=== PATIENT | female | born 1940 | race Caucasian/White ===

== ENCOUNTER 2024-03-24 22:01 | Observation (INO) | payer OTHER, SELFPAY ==
[2024-03-24 13:36] VITALS: BP 151/108
[2024-03-24 13:58] LABS: % Basophils 0.4 % (0-2); % Eosinophils 1.1 % (0-6); % Immature Granulocytes 0.2 % (0-0.5); % Lymphocytes 27.2 % (20.5-51.1); % Monocytes 8.5 % (1.7-9.3); % Neutrophils 62.6 % (42.2-75.2); Absolute Eosinophils 0.1 10^3/uL (0-0.7); Absolute Lymphocytes 1.5 10^3/uL (1.2-3.4); Absolute Monocytes 0.5 10^3/uL (0.1-0.6); Absolute Neutrophils 3.5 10^3/uL (1.4-6.5); Hematocrit 38.6 % (37.0-47.0); Hemoglobin 12.9 g/dL (12.0-16.0); Mean Corp Hgb Conc. 33.4 g/dL (33.0-37.0); Mean Corpuscular Hgb 29.3 pg (27.0-31.0); Mean Corpuscular Volume 87.7 fL (81.0-99.0); Mean Platelet Volume 11.2 fL (7.4-10.4); Nucleated Red Blood Cells % 0 %; Platelet Count 159 10^3/uL (130-400); Red Cell Dist. Width 13.4 % (11.5-14.5); White Blood Cell Count 5.6 10^3/uL (4.8-10.8)
[2024-03-24 14:11] LABS: ALT (SGPT) 13 U/L (0-35); AST (SGOT) 28 U/L (14-36); Albumin 4.5 g/dl (3.5-5.0); Alkaline Phosphatase 77 U/L (38-126); Blood Urea Nitrogen 18 mg/dl (7-17); Calcium 9.5 mg/dl (8.4-10.2); Carbon Dioxide 28 mmol/L (22-30); Chloride 104 mmol/L (98-107); Glucose 108 mg/dl (70-99); Potassium 4.2 mmol/L (3.5-5.1); Sodium 142 mmol/L (135-145); Total Bilirubin 0.9 mg/dl (0.2-1.3); eGFR > 60.00
[2024-03-24 14:18] LABS: Troponin I < 0.012 ng/ml
--- NOTE | 2024-03-24 16:24 | ED.GENMED ---
History of Present Illness
General
Chief Complaint: Dizziness
Source: patient
Exam Limitations: none
Time Seen by Provider: 03/24/24 15:06
Nursing documentation reviewed up to this point in time: agreed with
History of Present Illness
History of Present Illness:
84-year-old female past medical history of hypertension, anemia, GERD presenting to the emergency department today with concerns of room spinning dizziness that started 2 days ago has some ongoing symptoms throughout the day some mild symptoms
yesterday and today had an episode over the room spinning had difficulty ambulating from her come to the ER. She also had some vomiting yesterday. Denies any history of vertigo denies headache numbness weakness otherwise. Also has had some
pressure to the back of her head.
Past History
Past History
ED Past Medical History: GERD and Other (overactive bladder, anemia)
ED Past Surgical History: Other
Social History
Tobacco: Non-smoker
Drug: None
Personal:
Living: with family
Employment: Retired
Family History
Family History: Other
Review of Systems
Review of Systems
Allergies reviewed?: Yes
All Other Systems: ROS reviewed and negative except as documented in HPI and ROS
Phy Exam
Physical Exam
Physical Exam:
GENERAL: Alert , in no apparent distress
EYE: pupils equal and reactive
NECK: Supple, no significant adenopathy.
ENT: o/p clr, mmm.
CARDIAC: Regular rate and rhythm .
LUNGS: Clear breath sounds bilaterally, no acute respiratory distress, no wheezes/rales/rhonchi
ABDOMEN: Soft, without focal tenderness, no r/g, no cvat
NEUROLOGICAL: Alert and oriented, no focal neuro deficits 5-5 upper and lower extremity strength normal sensation with palpating bilaterally normal finger-nose and heel calvillo no pronator drift
SKIN: Warm and dry, skin intact.
MUSCULOSKELETAL: No edema, well perfused.
PSYCH: Normal and appropriate interaction.
Course
Orders/Labs/Results
Orders:
Orders
03/24/24 13:36
Electrocardiogram (*1) Urgent
Reason for Study: Vertigo / Dizzy
EKG- Treatment ONCE
03/24/24 13:41
Complete Blood Count/With Diff Urgent
Comprehensive Metabolic Panel Urgent
Troponin I Urgent
03/24/24 15:55
CT Head W/o Iv Contrast Urgent
Comment:
Reason For Exam: dizziness
03/24/24 16:20
Meclizine [Antivert] 25 mg PO NOW STA
Pt Eval And Treat Urgent
Treatment: vestibular
Activity Level: Ambulate
03/24/24 16:26
0.9% Sodium Chloride 500 ml [Nss] 500 ml IV BOLUS
03/24/24 19:58
Acetaminophen [Tylenol] 1,000 mg PO NOW STA
Abnormal Lab Results
03/24/24
13:41
MPV 11.2 H fL
(7.4-10.4)
BUN 18 H mg/dl
(7-17)
Glucose 108 H mg/dl
(70-99)
03/24/24 13:41
03/24/24 13:41
Vital Signs
Initial and Last Documented VS:
Initial Vital Signs
Temp Pulse Resp Pulse Ox
97.8 F 72 18 98
03/24/24 13:35 03/24/24 13:35 03/24/24 13:35 03/24/24 13:35
Last Documented Vital Signs
Temp Pulse Resp BP Pulse Ox
97.8 F 79 19 185/116 93
03/24/24 13:35 03/24/24 19:00 03/24/24 19:00 03/24/24 17:11 03/24/24 19:00
MDM/Problems Addressed
MDM/Problems Addressed:
84-year-old female presenting to the emergency department today with concerns of room spinning dizziness starting while laying in bed 2 days ago intermittently ongoing over the past few days episode today some vomiting yesterday on arrival blood
pressure mildly elevated otherwise vital signs are normal. Here normal neurologic evaluation but had some staggering gait but is not typical for her. She normally walks without assistance. Labs without acute abnormalities of the slightly elevated
BUN to creatinine ratio. She was given some meclizine and fluids. Patient reassessed without significant improvement of symptoms. CT scan performed here without acute findings. Patient was ambulated here still staggering gait almost fell over
during exam typically walks on her own plan to admit for further assessment
*Critical Care Note
Total Time (30-74mins, 75-104mins- exclusive of procedures): Not Applicable
ED Attending Note
-
Portions of this chart may have been created with voice recognition software.� Occasional wrong word or��sound alike� substitutions may have occurred due to the inherent limitations of voice recognition software.
Discharge Plan
Departure
Patient Disposition: Admit
Date of Disposition: 03/24/24
Time of Disposition: 20:03
Admit to: Telemetry
Admit to doctor: Jerel
Presentation/result/management discussed w/ accepting MD/DO: Hospitalist
Patient with high blood pressure during this ER visit?: Yes
Condition: Good
Covid-19: Not Applicable
Discharge Problem:
Balance disorder, Dizziness
Prescriptions:
No Action
hydrocodone-acetaminophen 1 TABLET tablet
1 tab PO Q4HPRN PRN (Reason: pain) Qty: 15 0RF
diazepam 2 MG tablet
2 mg PO TIDPRN PRN (Reason: severe back pain) Qty: 15 0RF
Referrals:
Adam Chatman MD [Family Provider] -
Interventions
Interventions:
*Risk Screen - Suicide Last Done: 03/24/24 16:33
*General Assessment Last Done: 03/24/24 17:14
*Neglect/Abuse Screening Last Done: 03/24/24 16:33
*ED COVID-19 Vaccine History Last Done: 03/24/24 17:14
ED- Neurological Assessment Last Done: 03/24/24 17:00
ED Swallowing Screen Last Done: 03/24/24 17:00
Discharge Date and Time
Print Language: JAPANESE
[2024-03-24] MEDS: ANTIVERT PO (16:31)
[2024-03-24] MEDS: ANTIVERT 25 MG PO (17:02)
[2024-03-24 17:04] VITALS: BP 186/89
[2024-03-24 17:11] VITALS: BP 185/116
[2024-03-24] MEDS: NSS 500 IV (17:13)
[2024-03-24] MEDS: TYLENOL 1000 MG PO (20:16)
--- NOTE | 2024-03-24 21:15 | HPS.HSE ---
Addendum entered and electronically signed by Jm Tirado MD 03/24/24 22:27:
Attending addendum.
patient was interviewed and examined independently.
84 woman with vertigo, not improved by head maneuvers. symptoms started at rest.
Exam: PERRLA
Face symmetric
Neuro symmetric
Lungs clear
Abd soft
4/[address]:
No acute intracranial abnormality noted.
Moderate chronic microvascular white matter ischemic disease. Small focal chronic periventricular white matter lacunar infarct. Atrophy. No hydrocephalus.
A/P
84 woman with vertigo.
1. Vertigo, possible BPPV vs Acute/Subacute Stroke
Consult Neurology
Brain MRI
aspirin
meclizine prn
PT/OT
Please see PA note for full details on:
Hypertension,
Cardiac Murmur
Overactive Bladder
Original Note:
Family Physician
-
Family Physician: Adam Chatman
Chief Complaint
-
Vertigo
History of Present Illness
Patient is an 84-year-old female past medical history of hypertension who presents with vertigo. Patient reports with concerns of room spinning, dizziness, starting while laying in bed 2 days ago. She reports two episode of spinning sensation that
last a few minutes each. She reports one episode of vomiting due to the severity of the symptoms. She continues to reports difficulty with ambulation due to feeling off balance. She denies any prior history of TIA/CVA or prior similar symptoms.
Medical History
Past Medical History
Past Medical History: Reports Other
Additional Past Medical History:
Essential Hypertension
Overactive Bladder
Past Surgical History: Reports Other
Additional Past Surgical History:
Partial Thyroidectomy
Appendectomy
Cholecystectomy
Hysterectomy
Bladder Lift
Left Rotator Cuff
Social History
Tobacco: Non-smoker
Alcohol: Occasional
Family History
Family History: Not pertinent
Allergies / Home Medications
Allergies reflects when Allergies were last updated in [employer].
Home Medications with original date entered in [employer]
Allergy/Medication List:
Allergies
Allergy/AdvReac Type Severity Reaction Status Date / Time
aspirin Allergy Nausea / Verified 03/24/24 21:10
[From Empirin W/Codeine] Vomiting
codeine phosphate Allergy Nausea / Verified 03/24/24 21:10
[From Empirin W/Codeine] Vomiting
Home Medications
aspirin 81 mg tablet,delayed release 81 mg PO DAILY 03/24/24
lisinopril 5 mg tablet 5 mg PO DAILY 03/24/24
tolterodine 4 mg capsule,extended release 24 hr 4 mg PO DAILYPRN PRN overactive bladder 03/24/24
Review of Systems
-
A 12 point ROS was completed and negative except as noted: Yes
Constitutional: Denies Fever or Chills
Respiratory: Denies Cough or Trouble Breathing
Cardiac: Denies Chest Pain or Palpitations
Abdomen/GI: Denies Abdominal Pain
Physical Exam
Vital Signs
Vital Signs
Temp Pulse Resp BP Pulse Ox
97.8 F 78 19 185/116 93
03/24/24 13:35 03/24/24 20:19 03/24/24 19:00 03/24/24 17:11 03/24/24 19:00
Physical Exam
General: Comfortable and Conversant
HEENT: Anicteric, Moist mucous membranes, PERRLA and Other (Nystagmus with lateral gaze to the left)
Respiratory: Clear and Non Labored Respirations
Cardiac: S1/S2, Regular Rhythm and Murmur
GI: Soft and Non Tender
Rectal: Deferred by Provider
Musculoskeletal: No Clubbing, No Cyanosis and No Edema
Skin: Warm and Dry
Neuro: Awake, Alert, Oriented, No Motor Deficits and Other (Ataxia noted when ambulating with ED staff)
Psych: Calm
Laboratory Results
-
03/24/24 13:41
03/24/24 13:41
Laboratory Results
Total Bilirubin 0.9 mg/dl (0.2-1.3) 03/24/24 13:41
AST 28 U/L (14-36) 03/24/24 13:41
ALT 13 U/L (0-35) 03/24/24 13:41
Alkaline Phosphatase 77 U/L (38-126) 03/24/24 13:41
Troponin I < 0.012 ng/ml 03/24/24 13:[address]:
No acute intracranial abnormality noted.
Moderate chronic microvascular white matter ischemic disease. Small focal chronic periventricular white matter lacunar infarct. Atrophy. No hydrocephalus.
Data Reviewed
-
CT Scan: Report Reviewed by me
Lab Data: Labs Reviewed by me
Impression/Plan
-
Vertigo, possible BPPV vs Acute/Subacute Stroke
-Consult Neurology
-Check Brain MRI
-Continue aspirin
-Continue meclizine prn
-Consult PT/OT
Hypertension, BP uncontrolled at present time due to missed meds
-Continue lisinopril with first dose now
Cardiac Murmur
-Check Echo
Overactive Bladder
-Continue tolterodine
DVT proph: SCDs
Code Status: Full Code
[2024-03-24] MEDS: ZESTRIL 5 MG PO (23:02)
[2024-03-24 23:04] VITALS: BP 168/81; BMI 25.8
[2024-03-25] VITALS (8 sets, daily range): BP systolic 137–170; BP diastolic 71–92; PULSE 71–76; O2SAT 97
[2024-03-25 05:53] LABS: Hematocrit 37.5 % (37.0-47.0); Hemoglobin 12.6 g/dL (12.0-16.0); Mean Corp Hgb Conc. 33.6 g/dL (33.0-37.0); Mean Corpuscular Hgb 29.4 pg (27.0-31.0); Mean Corpuscular Volume 87.6 fL (81.0-99.0); Mean Platelet Volume 11.1 fL (7.4-10.4); Platelet Count 146 10^3/uL (130-400); Red Blood Cell Count 4.28 10^6/uL (4.20-5.40); Red Cell Dist. Width 13.4 % (11.5-14.5); White Blood Cell Count 4.2 10^3/uL (4.8-10.8)
[2024-03-25 06:17] LABS: Blood Urea Nitrogen 21 mg/dl (7-17); Calcium 8.9 mg/dl (8.4-10.2); Carbon Dioxide 29 mmol/L (22-30); Chloride 106 mmol/L (98-107); Estimated Creatinine Clearance 50 ml/min; Glucose 92 mg/dl (70-99); HDL Cholesterol 54 mg/dl; LDL Cholesterol, Calculated 141 mg/dl; Magnesium 1.9 mg/dl (1.6-2.3); Potassium 3.9 mmol/L (3.5-5.1); Sodium 143 mmol/L (135-145); Total Cholesterol 217 mg/dl (50-199); Triglyceride 113 mg/dl (10-149); Very Low Density Lipoprotein 22 mg/dl (0-30); eGFR > 60.00
[2024-03-25] MEDS: ANTIVERT 12.5 MG PO ×2 (08:35→20:11)
[2024-03-25] MEDS: ZESTRIL 5 MG PO (08:37)
[2024-03-25] MEDS: ASPIR LOW (ENTERIC COATED) 81 MG PO (08:37)
[2024-03-25] MEDS: HEPARIN 5000 UNITS SC ×2 (08:40→20:14)
--- NOTE | 2024-03-25 08:40 | PTOTSP ---
Speech Language Pathology
Pt seen for cognitive-linguistic evaluation via the [employer] Cognitive Assessment (MOCA), version 8.3. No dysarthria noted. Pt with a score of 25/30 where normal range is 26-30. Pt stated this is baseline.
Pt also seen for clinical bedside swallow evaluation. She reported that she has to take small bites or solids will 'go down the wrong pipe.' P.O. trials of regular solids and thin liquids provided. Also seen with med pass with meds whole with
liquids. Adequate mastication, bolus formation, and A-P transit noted with no oral residue. No overt signs of aspiration. Pt reported globus sensation in chest x1. If dysphagia present, suspect esophageal in nature, and it appears pt manages
this well.
Recommend:
(1) Continue regular solids/thin liquids
(2) General aspiration precautions
(3) Meds as tolerated
(4) DIRECTOR DATA ARCHITECTURE to sign off as pt is at baseline. Please reconsult as indicated
--- NOTE | 2024-03-25 09:40 | W.PN.HOSP.TC ---
Today's Communication/Plan
-
Neurology evaluation
MRI
Meclizine
Assessment / Plan
Assessment / Plan
Physical Exam
General: Comfortable and Conversant
HEENT: Anicteric, Moist mucous membranes, PERRLA and Other (Nystagmus with lateral gaze to the left)
Respiratory: Clear and Non Labored Respirations
Cardiac: S1/S2, Regular Rhythm and Murmur
GI: Soft and Non Tender
Rectal: Deferred by Provider
Musculoskeletal: No Clubbing, No Cyanosis and No Edema
Skin: Warm and Dry
Neuro: Awake, Alert, Oriented, No Motor Deficits and Other (Ataxia noted when ambulating with ED staff)
Psych: Calm, not anxious
# Vertigo, possible BPPV vs Acute/Subacute Stroke
She feels better this morning, not dizzy but has similar episode in past
CT head showed no acute intracranial abnormality noted. Moderate chronic microvascular white matter ischemic disease. Small focal chronic periventricular white matter lacunar infarct. Atrophy. No hydrocephalus.
For Brain MRI, wants Ativan before it
aspirin orally
No fever or leukocytosis
No earache , wears haring aids.
Oral meclizine, change to BID and PRN
PT/OT/
ok for diet
Appreciate neurology input
Please see PA note for full details on:
# Primary Hypertension,
No hypotension
SBP 150-140
c/w Lisinopril
Add lisinopril
# HLD,
# Valvular heart disease
Echo in 2019 showed Mild to moderate MR. Mild to moderate aortic regurgitation.
#Overactive Bladder.
Total time spent to see the patient, examine the patient on the floor, review data and lab results, discuss the treatment plan with the patient, nursing staff around 55 minutes
Anticipated Discharge: Within 24 hours
Subjective/Interval History
-
Date of Service: March 25, 2024
She has vertigo, dizzy mostly to right side
No chest pain
No sob
Objective Data
-
Labs:
Laboratory Results
03/25/24
05:33
WBC 4.2 L
Hgb 12.6
Hct 37.5
Plt Count 146
Sodium 143
Potassium 3.9
Chloride 106
Carbon Dioxide 29
BUN 21 H
Creatinine 0.7
Glucose 92
Calcium 8.9
Vital Signs:
Vital Signs
Temp Pulse Resp BP Pulse Ox
98.0 F 78 18 143/72 99
03/25/24 07:25 03/25/24 07:25 03/25/24 07:25 03/25/24 07:25 03/25/24 07:25
[2024-03-25 11:32] LABS: Glycohemoglobin (HgbA1c) 5.5 % (4.0-5.6)
--- NOTE | 2024-03-25 12:15 | CM ---
CM met with pt and dtr/Margaret bedside
Pt resides with her spouse with dementia in an inlaw suite attached to son's Jon's home
Suite is 1 story with 2 PIL[address]
Pt is independent with her ADLs, no DMEs, drives+
No insecurities
PCP- Adam Chatman
Rx- Mal
PT/OT evals pending
Pt is OBS- LESLIE completed
Copy provided
Of note, spouse is second marriage and not father of her children
POA is older son/ Jose R in [place]
Requested copy for chart
Margaret to remain primary contact
Discharge Disposition- home, watch for VN/DME needs
--- NOTE | 2024-03-25 13:47 | CON.NEURO4 ---
Documented by User: Madeline Fernandez NP 03/25/24 14:44
Consultation - Neurology 4
-
CONSULTING PHYSICIAN: Marcos Blanc MD
REFERRING PHYSICIAN: Hospitalists/Krysta Coe PA-C
DICTATED BY: JUAN Nicole
DATE/TIME OF REQUEST: 03/24/24
DATE/TIME OF CONSULTATION: 03/25/24
Reason for Consultation: Dizziness
History of Present Illness:
This is an 84-year-old female who has presented to the hospital on 03/24/24 with report of dizziness. Patient reports that three days ago on 03/22/24 she was laying in bed when she suddenly developed a room-spinning sensation in which the rivas were
spinning around her. The spinning sensation lasts for a few minutes before improving but has persisted intermittently for days. She reports intermittent nausea and vomited on 03/23/24. CT head was obtained on arrival in the ER and is negative for any
acute abnormalities but is suggestive of a chronic white matter lacunar infarct. Currently, she reports feeling improved, but when she ambulates she still feels 'off-balance.' Physical therapy initial evaluation revealed resting and left gaze
nystagmus suggestive of vestibular neuritis. She had Covid in November 2023 but denies any recent illnesses. She has bilateral hearing loss and tinnitus starting >10 years ago. She reports having a similar spinning episode about one year ago that was
short lasting compared to this. She also notes having intermittent light-headedness with position change after taking her tolterodine. She denies any known history of TIA or stroke in the past. She is taking aspirin 81mg daily.
Past Medical History: HTN, GERD, anemia, overactive bladder,
Surgical History: Partial thyroidectomy, appendectomy, cholecystectomy, hysterectomy, bladder life, left rotator cuff repair.
Family History: Reviewed and noncontributory.
Social History: Denies tobacco, alcohol, and illicit drug use.
Allergies: Aspirin with codeine.
Home Medications: See below.
Review of Symptoms:
Patient denies any fever, headache, chest pain, shortness of breath, GI or symptoms.
�Per the HPI.�All systems are reviewed negative except above.
Physical Exam:
The patient is afebrile, abdomen is nondistended, breathing is unlabored, skin is warm and dry, no edema.
NIH Stroke Scale:
I performed the NIH stroke scale on the patient on 03/25/24 at 1245. The patient scored 0 points on the NIH stroke scale assessment, which were assigned as follows: See below.
Neurologic Examination:
The patient is awake, alert and oriented x 3. She is able to follow commands and answer questions appropriately. There is no aphasia or dysarthria. On cranial nerve assessment, pupils are 3 mm bilateral, round and reactive to light and
accommodation. Visual kapoor are full. Extraocular movements are intact. Facial sensations are intact and bilaterally symmetrical, there is no facial asymmetry. Hearing is diminished bilaterally to normal conversation volume. Tongue palate and uvula
are midline. Sternocleidomastoid strengths are full bilaterally. Motor strengths are 5/5 bilateral upper and lower extremities on medical research [place] scale. There is no drift or involuntary movement noted. Babinski is absent bilaterally. There
was no extinction noted on double simultaneous stimulation. Coordination is intact by finger to nose bilaterally.
Lab Results: See below.
Neuro Imaging:
1. CT Head 03/24/24: No acute intracranial abnormality noted. Moderate chronic microvascular white matter ischemic disease. Small focal chronic periventricular white matter lacunar infarct. Atrophy. No hydrocephalus.
Differentials for the patient's presentation include:
1. Vertigo syndrome, likely vestibular neuritis vs BPPV.
2. Cannot entirely exclude acute small ischemic stroke contributing to symptoms.
3. CT Head suggestive of chronic white matter lacunar infarct.
Patient has the following risk factors for their symptoms: Hx vertigo, nystagmus, HTN
IV Tenecteplase/IAT candidacy: Not a candidate due to outside of time window.
Recommendations:
-Continue aspirin 81mg daily.
-MRI brain noncontrast, MRA head/neck pending.
-Goal normotension.
-Supportive care, continue meclizine if this is helpful.
-NIHSS and neurological checks per unit guidelines.
-Provide patient with a stroke education packet.
-Vitamin B12 level low in 2008, checking blood work for metabolic abnormalities.
-PT evaluations, will likely need outpatient vestibular therapy.
-DVT prophylaxis.
-Will follow pending results.
Discussed patient care with: Dr. Blanc, the patient, patient's daughter
Vital Signs and Labs
-
Vital Signs and Labs:
Vital Signs
Temp Pulse Resp BP Pulse Ox
98.4 F 88 16 155/92 96
03/25/24 11:45 03/25/24 11:45 03/25/24 11:45 03/25/24 11:45 03/25/24 11:45
Lab Results
03/25/24 05:33
03/25/24 05:33
Sodium 143 mmol/L (135-145) 03/25/24 05:33
Potassium 3.9 mmol/L (3.5-5.1) 03/25/24 05:33
BUN 21 mg/dl (7-17) H 03/25/24 05:33
Glucose 92 mg/dl (70-99) 03/25/24 05:33
Calcium 8.9 mg/dl (8.4-10.2) 03/25/24 05:33
LDL Cholesterol, Calc 141 mg/dl 03/25/24 05:33
Medications
-
Active Medications
Generic Name Dose Route Start Last Admin
Trade Name Freq PRN Reason Stop Dose Admin
Acetaminophen 650 mg 03/24/24 22:42
Acetaminophen 650 Mg Rectal Suppository RECTAL 04/21/24 22:41
Q4HPRN PRN
MEJÍA, mild pain, or temp >100.4F
Acetaminophen 650 mg 03/25/24 02:00
Acetaminophen 325 Mg Tablet PO 04/22/24 01:59
Q4HPRN PRN
MEJÍA, mild pain, or temp >100.4F
Aspirin 81 mg 03/25/24 08:00 03/25/24 08:37
Aspirin 81 Mg (Enteric Coated) Tablet PO 04/22/24 07:59 81 mg
DAILY SUPA Administration
Atorvastatin Calcium 20 mg 03/25/24 18:00
Atorvastatin (Lipitor) 20 Mg Tablet PO 04/22/24 17:59
QPM SUPA
Heparin Sodium 5,000 units 03/25/24 08:00 03/25/24 08:40
Heparin 5,000 Units/Ml 1 Ml Vial SC 04/22/24 07:59 5,000 units
Q12 SUPA Administration
Lisinopril 5 mg 03/25/24 08:00 03/25/24 08:37
Lisinopril 5 Mg Tablet PO 04/22/24 07:59 5 mg
DAILY SUPA Administration
Meclizine HCl 25 mg 03/24/24 22:42
Meclizine 25 Mg Tablet PO 04/21/24 22:41
Q8HPRN PRN
vertigo
Meclizine HCl 12.5 mg 03/25/24 08:00 03/25/24 08:35
Meclizine 12.5 Mg Tablet PO 04/22/24 07:59 12.5 mg
BID SUPA Administration
Ondansetron HCl 4 mg 03/24/24 22:42
Ondansetron 4 Mg/2 Ml Vial IV 04/21/24 22:41
Q6HPRN PRN
NAUSEA/VOMITING
Sodium Chloride 0 flush 03/24/24 22:00
Sodium Chloride 0.9% (Flush) Syringe IV 04/21/24 21:59
PER PROTOCOL SUPA
Tolterodine Tartrate 4 mg 03/24/24 22:42
Tolterodine 4 Mg Extended Release Capsule PO 04/21/24 22:41
DAILYPRN PRN
overactive bladder
Home Medications
�Medication �Instructions �Recorded
aspirin 81 mg tablet,delayed 81 mg PO DAILY Blood Clot 03/24/24
release Prevention/Tx
lisinopril 5 mg tablet 5 mg PO DAILY Blood Pressure 03/24/24
tolterodine 4 mg capsule,extended 4 mg PO DAILYPRN PRN overactive 03/24/24
release 24 hr bladder
NIH Stroke Score
Subsequent NIH Scale
Date of Subsequent NIH Scale: 03/25/24
Time of Subsequent NIH Scale: 12:45
NIH Stroke Score
Level of Consciousness: 0 - Alert
LOC Questions: 0-Answers both correctly
LOC Commands: 0-Performs both correctly
Best Horizontal Gaze: 0-Normal
Visual Kapoor: 0=Normal, no visual loss
Facial Palsy: 0=Normal, symmetrical
Motor - Right Arm: 0=No drift 10 seconds
Motor - Left Arm: 0=No drift 10 seconds
Motor - Right Le-No drift 5 seconds
Motor - Left Le-No drift 5 seconds
Limb Ataxia: 0-Absent
Sensation: 0-Normal
Best Language: 0-No aphasia
Dysarthria: 0-Normal
Extinction and Inattention: 0-No abnormality
Total Score:: 0
Modified Milton (mRS) Score
Modified Melissa Scale (mRS): Moderate disability. Requires some help, able to walk unassisted.
Score: 3

Documented by User: Marcos Blanc MD 03/29/24 20:32
Consultation - Neurology 4
-
CONSULTING PHYSICIAN: Marcos Blanc MD
REFERRING PHYSICIAN: Hospitalists/Krysta Coe PA-C
DICTATED BY: JUAN Nicole
DATE/TIME OF REQUEST: 03/24/24
DATE/TIME OF CONSULTATION: 03/25/24
Reason for Consultation: Dizziness
History of Present Illness:
This is an 84-year-old female who has presented to the hospital on 03/24/24 with report of dizziness. Patient reports that three days ago on 03/22/24 she was laying in bed when she suddenly developed a room-spinning sensation in which the rivas were
spinning around her. The spinning sensation lasts for a few minutes before improving but has persisted intermittently for days. She reports intermittent nausea and vomited on 03/23/24. CT head was obtained on arrival in the ER and is negative for any
acute abnormalities but is suggestive of a chronic white matter lacunar infarct. Currently, she reports feeling improved, but when she ambulates she still feels 'off-balance.' Physical therapy initial evaluation revealed resting and left gaze
nystagmus suggestive of vestibular neuritis. She had Covid in November 2023 but denies any recent illnesses. She has bilateral hearing loss and tinnitus starting >10 years ago. She reports having a similar spinning episode about one year ago that was
short lasting compared to this. She also notes having intermittent light-headedness with position change after taking her tolterodine. She denies any known history of TIA or stroke in the past. She is taking aspirin 81mg daily.
Past Medical History: HTN, GERD, anemia, overactive bladder,
Surgical History: Partial thyroidectomy, appendectomy, cholecystectomy, hysterectomy, bladder life, left rotator cuff repair.
Family History: Reviewed and noncontributory.
Social History: Denies tobacco, alcohol, and illicit drug use.
Allergies: Aspirin with codeine.
Home Medications: See below.
Review of Symptoms:
Patient denies any fever, headache, chest pain, shortness of breath, GI or symptoms.
�Per the HPI.�All systems are reviewed negative except above.
Physical Exam:
The patient is afebrile, abdomen is nondistended, breathing is unlabored, skin is warm and dry, no edema.
NIH Stroke Scale:
I performed the NIH stroke scale on the patient on 03/25/24 at 1245. The patient scored 0 points on the NIH stroke scale assessment, which were assigned as follows: See below.
Neurologic Examination:
The patient is awake, alert and oriented x 3. She is able to follow commands and answer questions appropriately. There is no aphasia or dysarthria. On cranial nerve assessment, pupils are 3 mm bilateral, round and reactive to light and
accommodation. Visual kapoor are full. Extraocular movements are intact. Facial sensations are intact and bilaterally symmetrical, there is no facial asymmetry. Hearing is diminished bilaterally to normal conversation volume. Tongue palate and uvula
are midline. Sternocleidomastoid strengths are full bilaterally. Motor strengths are 5/5 bilateral upper and lower extremities on medical research [place] scale. There is no drift or involuntary movement noted. Babinski is absent bilaterally. There
was no extinction noted on double simultaneous stimulation. Coordination is intact by finger to nose bilaterally.
Lab Results: See below.
Neuro Imaging:
1. CT Head 03/24/24: No acute intracranial abnormality noted. Moderate chronic microvascular white matter ischemic disease. Small focal chronic periventricular white matter lacunar infarct. Atrophy. No hydrocephalus.
Differentials for the patient's presentation include:
1. Vertigo syndrome, likely vestibular neuritis vs BPPV.
2. Cannot entirely exclude acute small ischemic stroke contributing to symptoms.
3. CT Head suggestive of chronic white matter lacunar infarct.
Patient has the following risk factors for their symptoms: Hx vertigo, nystagmus, HTN
IV Tenecteplase/IAT candidacy: Not a candidate due to outside of time window.
Recommendations:
-Continue aspirin 81mg daily.
-MRI brain noncontrast, MRA head/neck pending.
-Goal normotension.
-Supportive care, continue meclizine if this is helpful.
-NIHSS and neurological checks per unit guidelines.
-Provide patient with a stroke education packet.
-Vitamin B12 level low in 2008, checking blood work for metabolic abnormalities.
-PT evaluations, will likely need outpatient vestibular therapy.
-DVT prophylaxis.
-Will follow pending results.
Discussed patient care with: Dr. Blanc, the patient, patient's daughter
Neurology Attending Note:
CC: Dizziness
HPI: 84-year-old female with h/o HTN, GERD, anemia who was admitted for eval of dizziness. Patient reports that three days ago on 03/22/24 she was laying in bed when she suddenly developed a room-spinning sensation in which the rivas were spinning
around her, that was brief but recurred daily. She reports intermittent nausea and vomited on 03/23/24. CT head was obtained on arrival in the ER and is negative for any acute abnormalities but is suggestive of a chronic white matter lacunar infarct
MRI revealed subcortical lacune in the right Centrum semiovale
A/P:Right Lacunar CVA asymptomatic
Benign positional vertigo- labyrinthine
PLAN: Aspirin 81
Meclizine 12.5-25 mg prn
Vestibular therapy
NIH Stroke Score
NIH Stroke Score
Total Score:: 0
Modified Milton (mRS) Score
Score: 3
[2024-03-25] MEDS: LIPITOR 20 MG PO (20:12)
[2024-03-26 03:35] VITALS: BP 144/78
[2024-03-26 07:43] VITALS: BP 140/85
[2024-03-26] MEDS: HEPARIN 5000 UNITS SC (08:23)
[2024-03-26] MEDS: ANTIVERT 12.5 MG PO (08:23)
[2024-03-26] MEDS: ZESTRIL 5 MG PO (08:23)
[2024-03-26] MEDS: ASPIR LOW (ENTERIC COATED) 81 MG PO (08:23)
[2024-03-26 09:42] VITALS: BP 153/84; BP 156/78; PULSE 72; O2SAT 99
--- NOTE | 2024-03-26 10:09 | W.PN.HOSP.TC ---
Today's Communication/Plan
-
discharge
Assessment / Plan
Assessment / Plan
Physical Exam
General: Comfortable and Conversant
HEENT: Anicteric, Moist mucous membranes, PERRLA and Other (Nystagmus with lateral gaze to the left)
Respiratory: Clear and Non Labored Respirations
Cardiac: S1/S2, Regular Rhythm and Murmur
GI: Soft and Non Tender
Rectal: Deferred by Provider
Musculoskeletal: No Clubbing, No Cyanosis and No Edema
Skin: Warm and Dry
Neuro: Awake, Alert, Oriented, No Motor Deficits and Other (Ataxia noted when ambulating with ED staff)
Psych: Calm, not anxious
# Vertigo, possible BPPV vs Acute/Subacute Stroke
She feels better this morning, not dizzy but has similar episode in past
CT head showed no acute intracranial abnormality noted. Moderate chronic microvascular white matter ischemic disease. Small focal chronic periventricular white matter lacunar infarct. Atrophy. No hydrocephalus.
Brain MRI showed subacute to chronic right lacunar CVA.Per neurology, unlikely to cause dizziness but likely diagnosis inner ear related, dc on aspirin only.
aspirin orally
No fever or leukocytosis
No earache , wears haring aids.
Oral meclizine, change to BID and PRN
PT/OT/ no limitations. Home pT
ok for diet
Appreciate neurology input
Please see PA note for full details on:
# Primary Hypertension,
No hypotension
SBP 150-140
c/w Lisinopril, increase the dose to 10 mg QD.
# HLD,
# Valvular heart disease
Echo in 2019 showed Mild to moderate MR. Mild to moderate aortic regurgitation.
#Overactive Bladder.
Total discharge time spent to see the patient, examine the patient on the floor, review data and lab results, discuss the discharge plan with the patient, family, neurologist, case supervisor and nursing staff around 65 minutes
Anticipated Discharge: Today
Subjective/Interval History
-
Date of Service: March 26, 2024
She feels less dizzy
Objective Data
-
Vital Signs:
Vital Signs
Temp Pulse Resp BP Pulse Ox
97.9 F 65 16 140/85 97
03/26/24 07:43 03/26/24 08:23 03/26/24 07:43 03/26/24 08:23 03/26/24 07:43
I&O
03/25/24 03/26/24 03/27/24
06:59 06:59 06:59
Intake Total 1120 / 1120
Balance 1120 / 1120
--- NOTE | 2024-03-26 10:31 | CM ---
MD entered order for discharge.
Spoke with pt she said she was ready for dc.
Offered Vn to her . She requested [facility] . ZOIE Gil S [facility] rep for referral.
Dgt Margaret will drive her home.
PLAN Home with [facility] if accepted.
[2024-03-26 11:13] VITALS: BP 159/79
--- NOTE | 2024-03-26 11:56 | VNURNOTE ---
Home Health Liaison spoke w/patient to discuss [facility] therapy, visits, schedule and homebound status. Patient is agreeable and understands that visits at home will be 2-3 x per week for PT. [facility] brochure provided with contact information. Patient is
aware that [facility] will contact them for start of care in 1-2 days after discharge from .
[facility] referral completed in [facility].
[2024-03-26 12:18] LABS: Vitamin B12 212 pg/ml (239-931)
--- NOTE | 2024-03-27 06:51 | W.DCSUMMARY ---
Discharge Summary
Discharge Data
Date of Admission: 03/24/24
Date of Discharge: 03/26/24
-
Pending Results: No
Hospital Course
84 years old female who presented with dizziness. She described feeling dizzy for a few days, episodic, would last for minutes, mostly upon looking to the right side. She also described feeling unsteady. She reported bilateral hearing loss and
tinnitus for many years. She had history of dizziness episodes in the past. Scan of the brain showed chronic white matter lacunar infarct. MRI brain per neurology only showed chronic right lacunar infarct and per neurology was unlikely to cause
her dizziness. She started to improve with meclizine. Neurologist suggested possibility of benign positional vertigo versus vestibular neuritis. Neurologist did not recommend changes to her medications and to continue daily aspirin. She was
evaluated by physical therapy and was appropriate for home health. Patient was noted to have uncontrolled hypertension. Lisinopril dose was increased from 5 mg to 10 mg with good response. Patient remained hemodynamically stable and was
discharged in a stable condition.
Discharge Plan
-
Patient Disposition: Home with Home Care
Discharge Diagnosis/Procedures: Vertigo. You were evaluated by neurology. MRI brain showed subacute chronic lacunar infarct in in the right periventricular adair radiata. neurologist recommended to continue aspirin only. The dizziness is likely
related to inner ear problem. Advise to see ENT if it continues.
-Your blood pressure was uncontrolled well, we increased lisinopril dose to 20 mg daily, follow with your primary care doctor.
Diet: Low Fat
Referrals:
Adam Chatman MD [Family Provider] - in one to two weeks
Jon Grover MD [Active] - in one month (Call to make an appointment for hearing/ear exam. )
Prescriptions:
New
meclizine 25 mg Tablet
25 mg PO Q8HPRN PRN (Reason: vertigo) Qty: 10 0RF
lisinopril 10 mg tablet
10 mg PO DAILY Qty: 30 0RF
Continued
tolterodine 4 mg capsule,extended release 24hr
4 mg PO DAILYPRN PRN (Reason: overactive bladder)
aspirin 81 mg Tablet,Delayed Release (Dr/Ec)
81 mg PO DAILY
Discontinued
lisinopril 5 mg Tablet
5 mg PO DAILY
Discharge Orders:
Discharge Patient (As Directed); Ordered 03/26/24
Ordered By: Omkar Almaraz
Discharge Date and Time
Discharge Date/Time: 03/26/24 12:50
Print Language: MOROCCAN
== END 2024-03-26 12:50 | disposition home health service (06) ==
LOC: 3 WEST ACU 22:01
PROVIDERS: Emergency Medicine; Physician Assistant Medical; ADMITTING PHYSICIAN Internal Medicine; ATTENDING PHYSICIAN Internal Medicine; CONSULT PHYSICIAN Psychiatry & Neurology Neurology; EMERGENCY PHYSICIAN Student in an Organized Health Care Education/Training Program; FAMILY PHYSICIAN Family Medicine
DX: R42 Dizziness and giddiness (principal); R11.10 Vomiting, unspecified; R26.2 Difficulty in walking, not elsewhere classified; R26.0 Ataxic gait; R01.1 Cardiac murmur, unspecified; H93.13 Tinnitus, bilateral; H91.93 Unspecified hearing loss, bilateral; I67.82 Cerebral ischemia; I10 Essential (primary) hypertension; N32.81 Overactive bladder; K21.9 Gastro-esophageal reflux disease without esophagitis; I08.3 Combined rheumatic disorders of mitral, aortic and tricuspid valves; E78.5 Hyperlipidemia, unspecified; Z86.73 Personal history of transient ischemic attack (TIA), and cerebral infarction without residual deficits; Z90.49 Acquired absence of other specified parts of digestive tract; Z88.6 Allergy status to analgesic agent; Z88.5 Allergy status to narcotic agent; Z79.82 Long term (current) use of aspirin; Z86.16 Personal history of COVID-19; Z90.710 Acquired absence of both cervix and uterus
CPT/HCPCS: 70450; 70544; 70548; 70551; 80048; 80053; 80061; 82607; 83036; 83735; 84484; 85025; 85027; 92523; 92610; 93005; 93306; 97116; 97166; 97530; 99285; A9585; G0378